=== PATIENT | male | born 1990 | race Caucasian/White ===

== ENCOUNTER 2018-08-14 14:46 | Emergency (ER) | payer SELFPAY ==
[~2018-08-14] VITALS: Ht 175.3 cm; Wt 83.5 kg
[2018-08-14 14:55] VITALS: BP 93/66; Ht 175.3 cm; Wt 83.5 kg
== END 2018-08-14 17:51 | disposition home or self-care (01) ==
LOC: ED 14:46
DX: S61.220A Laceration with foreign body of right index finger without damage to nail, initial encounter (principal); S61.204A Unspecified open wound of right ring finger without damage to nail, initial encounter; W25.XXXA Contact with sharp glass, initial encounter; Y93.89 Activity, other specified; Y92.89 Other specified places as the place of occurrence of the external cause; Y99.8 Other external cause status
CPT/HCPCS: 90715; J2001